=== PATIENT | female | born 1955 | race Caucasian/White ===

== ENCOUNTER → 2021-03-15 | Day surgery (SDC) | payer BC ==
[~2021-03-15] MED LIST: ADVAIR 250-501 EACH INH; CLARITIN10 MG PO; LISINOPRIL2.5 MG PO; NEXIUM40 MG PO; VITAMIN D325 MC6 PO
== END | disposition home or self-care (01) ==
LOC: OR 06:45
DX: K31.7 Polyp of stomach and duodenum (principal); K31.9 Disease of stomach and duodenum, unspecified; K21.00 Gastro-esophageal reflux disease with esophagitis, without bleeding; K44.9 Diaphragmatic hernia without obstruction or gangrene; Z20.822 Contact with and (suspected) exposure to COVID-19; I10 Essential (primary) hypertension; J44.9 Chronic obstructive pulmonary disease, unspecified; Z88.5 Allergy status to narcotic agent; Z88.1 Allergy status to other antibiotic agents
CPT/HCPCS: J2704; J7030